=== PATIENT | female | born 1995 | race Caucasian/White ===

== ENCOUNTER 2023-02-14 11:11 | Outpatient (CLI) | payer BC, SELFPAY ==
[2023-02-14 12:45] LABS: Beta HCG Quantitative < 2.39 mIU/ML
== END 2023-02-14 11:12 | disposition home or self-care (01) ==
PROVIDERS: PCP Physician Assistant; Visit Provider Obstetrics & Gynecology
DX: N92.6 Irregular menstruation, unspecified (principal)
CPT/HCPCS: 36415; 84702